=== PATIENT | female | born 1940 | race Asian ===

== ENCOUNTER 2017-01-01 12:27 | Observation (INO) ==
[2017-01-01] MEDS ORDERED: Levofloxacin 750 MG/150 ML 750 MG/150 ML BAG IVPB ONE (12:29)
--- NOTE | 2017-01-01 12:31 | Emergency Department Note ---
Disposition Clinical Impression: Bronchitis with bronchospasm, Failure of outpatient treatment Disposition: Admitted As Inpatient Condition: Fair Referrals: NO,PCP [Primary Care Provider] - Forms: ED Satisfaction Letter SOB HPI - General Chief Complaint: ED Shortness of Breath/Dyspnea Stated Complaint: khris, nausea, pain all over Time Seen by Provider: 01/01/17 12:29 Source: patient Mode of arrival: private vehicle Limitations: no limitations Nursing Notes Reviewed: Yes Vital Signs Reviewed: Yes - History of Present Illness He reports a long history of some recurrent upper wrist and dyspnea. She has been worse the last couple weeks and was seen for similar on December 26. She has also been seen subsequently by family doctor. Today she has had increased dyspnea with coughing and generalized body aches. She states her chest is sore from coughing but denies any other chest pain. She has had some nausea but no vomiting. She denies diaphoresis, abdominal pain. She denies any extremity swelling, immobilization injury or pain. She denies emphysema or COPD. Pt Subjective Complaint: shortness of breath, cough Onset (ago): day(s) Context: recent illness Severity: moderate, severe Consistency/Duration: gradually worsening Improves with: rest Worsens with: exertion, coughing Associated symptoms: Reports: cough, wheezing, sputum production, nausea/ vomiting (Nausea only). Denies: chest pain, pain with inspiration, fever, orthopnea, lower extremity pain, polyuria, polydipsia, parasthesias, palpitations, hemoptysis, diaphoresis, syncope, abdominal pain, rash Treatment prior to arrival: other (Antibiotics) Cough present: Yes Cough Description: Voluntary, Productive, Hacking Cough Frequency: Intermittent Sputum production: Yes Sputum Amount: Scant - Related Data Home Medications Medication Instructions Recorded Confirmed Fluticasone Propionate Nasal 120 spray NS BID 03/03/16 01/01/17 [Flonase] Loratadine [Claritin] 10 mg PO DAILY 03/03/16 01/01/17 Previous Rx's Medication Instructions Recorded Albuterol Sulfate [Proair Hfa] 2 puff IH QID PRN #1 inh 03/03/16 Amoxicillin/Clavulanate [Augmentin] 875 mg PO BIDWM #20 tablet 12/26/16 Allergies Allergy/AdvReac Type Severity Reaction Status Date / Time codeine AdvReac Vomiting Verified 03/03/16 15:20 naproxen [From Aleve] AdvReac Vomiting Verified 03/03/16 15:20 Sulfa (Sulfonamide AdvReac Hives Verified 03/03/16 15:20 Antibiotics) All systems ED: reviewed and negative except as stated. Past Medical History - Past Medical History Attestation: Yes The following information was validated with the patient. Source: patient, nursing notes reviewed Medical history: Reports: no medical history - Social History Smoking Status: Never smoker Smokeless Tobacco Status: No Alcohol use: Reports: none Drug use: Reports: none Physical Exam - General Limitations: no limitations General appearance: alert, anxious, in distress - Head Head exam: atraumatic, normocephalic, normal inspection - Eye Eye exam: Present: normal appearance, PERRL, EOMI. Absent: scleral icterus, conjunctival injection - ENT ENT exam: normal exam, normal oropharynx, mucous membranes moist - Neck Neck exam: Present: normal inspection, full ROM, trachea midline - Chest Chest inspection: Present: normal inspection, symmetric chest wall rise. Absent : tenderness - Respiratory Respiratory exam: Present: respiratory distress, wheezes, prolonged expiratory phase. Absent: accessory muscle use - Cardiovascular Cardiovascular exam: Present: regular rate, normal rhythm, normal heart sounds. Absent: tachycardia - Abdominal Exam Abdominal exam: Present: soft, Non-Tender, normal bowel sounds. Absent: tenderness, distention, guarding, rebound, rigidity - Extremities Exam Extremities exam: Present: normal inspection, full ROM, normal capillary refill. Absent: tenderness, pedal edema, calf tenderness - Expanded Lower Extremity Exam Neurovascular/Tendon exam: Present: normal capillary refill. Absent: motor deficit, sensory deficit, tendon deficit Gait: observed and normal - Back Exam Back exam: Present: normal inspection, full ROM. Absent: tenderness - Neurological Exam Neurological exam: Present: alert, oriented X3 - Psychiatric Psychiatric exam: Present: normal affect, anxious - Skin Skin exam: Present: warm, dry, intact, normal color. Absent: cyanosis, diaphoresis, pallor Course Course Narrative: 1330: All labs, EKG and imaging results were discussed with the patient. She is improved at this time with a heart rate of 84, oxygen 97% with supplemental oxygen, respiratory rate 26 and blood pressure 115/88. I feel she has failed to different regimens for outpatient management and would benefit from inpatient treatment. She is agreeable with this and I am awaiting a call from Dr. Godinez to help coordinate inpatient care. Vital Signs Temperature 98.6 F 01/01/17 12:32 Pulse Rate 85 01/01/17 12:32 Respiratory Rate 20 01/01/17 12:32 O2 Sat by Pulse Oximetry 98 01/01/17 12:32 Temperature 98.6 F 01/01/17 12:35 Pulse Rate 85 01/01/17 13:01 Respiratory Rate 20 01/01/17 13:01 Blood Pressure 139/60 01/01/17 13:01 O2 Sat by Pulse Oximetry 96 01/01/17 13:01 Oxygen Delivery Oxygen Delivery Nasal Cannula Shortness of Breath/Dyspnea - Differential Diagnosis Likely: acute exacerbation of chronic obstructive airways disease, congestive heart failure, pneumonia, asthma with exacerbation - Medical Records Medical records reviewed: Yes I reviewed the patient's medical records. Patient did have a negative chest x-ray, EKG and extensive lab work on December 26. She had been discharged on a steroid, Augmentin, albuterol inhaler and Mucinex. - Lab Data Lab results reviewed: Yes I reviewed the patient's lab results. Result diagrams: 01/01/17 13:00 01/01/17 13:00 Lab Results 01/01/17 01/01/17 01/01/17 Range/Units 13:00 13:00 13:00 WBC 8.8 (4.3-11.1) K/mcL RBC 4.50 (3.82-4.97) M/mcL Hgb 15.0 (11.5-15.4) g/dL Hct 44.7 (35.3-44.9) % MCV 99.3 (83.0-100.0) fL MCH 33.3 (28.0-33.3) pg MCHC 33.6 (31.6-35.5) g/dL RDW 13.1 (11.5-14.5) % Plt Count 291 (140-400) K/mcL MPV 9.0 L (9.4-12.4) fL Immature Gran % 0.2 (0-4) % Seg Neutrophils % 62.0 % Lymphocytes % 30.6 % Monocytes % 4.6 % Eosinophils % 2.4 % Basophils % 0.2 % Neutrophils # 5.4 (1.6-8.9) K/mcL Lymphocytes # 2.7 (0.6-4.6) K/mcL Monocytes # 0.4 (0.0-1.3) K/mcL Eosinophils # 0.2 (0.0-0.6) K/mcL Basophils # 0.0 (0.0-0.2) K/mcL PT (9.4-12.1) Seconds INR APTT (26.0-36.0) Seconds VBG Lactic Acid (0.5-2.2) mmol/L Sodium 140 (136-145) mEq/L Potassium 3.8 (3.5-4.5) mEq/L Chloride 105 (98-109) mEq/L Carbon Dioxide 25 (19-29) mEq/L BUN 19 (7-20) mg/dL Creatinine 0.77 (0.57-1.11) mg/dL Est GFR ( Amer) > 60 (> 60) Est GFR (Non-Af Amer) > 60 (> 60) BUN/Creatinine Ratio 25 (6-26) Glucose 152 H (70-99) mg/dL Calculated Osmolality 295 (280-300) Calcium 8.5 L (8.6-10.8) mg/dL Troponin I 0.00 (0-0.03) ng/mL B-Natriuretic Peptide (0-100) pg/mL 01/01/17 01/01/17 01/01/17 Range/Units 13:00 13:00 13:00 WBC (4.3-11.1) K/mcL RBC (3.82-4.97) M/mcL Hgb (11.5-15.4) g/dL Hct (35.3-44.9) % MCV (83.0-100.0) fL MCH (28.0-33.3) pg MCHC (31.6-35.5) g/dL RDW (11.5-14.5) % Plt Count (140-400) K/mcL MPV (9.4-12.4) fL Immature Gran % (0-4) % Seg Neutrophils % % Lymphocytes % % Monocytes % % Eosinophils % % Basophils % % Neutrophils # (1.6-8.9) K/mcL Lymphocytes # (0.6-4.6) K/mcL Monocytes # (0.0-1.3) K/mcL Eosinophils # (0.0-0.6) K/mcL Basophils # (0.0-0.2) K/mcL PT 12.0 (9.4-12.1) Seconds INR 1.1 APTT 30.8 (26.0-36.0) Seconds VBG Lactic Acid 1.4 (0.5-2.2) mmol/L Sodium (136-145) mEq/L Potassium (3.5-4.5) mEq/L Chloride (98-109) mEq/L Carbon Dioxide (19-29) mEq/L BUN (7-20) mg/dL Creatinine (0.57-1.11) mg/dL Est GFR ( Amer) (> 60) Est GFR (Non-Af Amer) (> 60) BUN/Creatinine Ratio (6-26) Glucose (70-99) mg/dL Calculated Osmolality (280-300) Calcium (8.6-10.8) mg/dL Troponin I (0-0.03) ng/mL B-Natriuretic Peptide 15 (0-100) pg/mL - Radiology Data Radiology results reviewed: Yes I reviewed the patient's radiology results. Single view chest x-ray is performed. This does not demonstrate evidence for infiltrate, effusion, pneumothorax, foreign body or heart failure. The cardiac silhouette is normal. I do not see abnormality to the osseous structures of the chest. This is on my interpretation. Impressions Chest X-Ray 01/01/17 12:29 IMPRESSION: No acute cardiopulmonary abnormality. D/ / Isak Franks MD / Isak Franks MD Interpreting Provider: Isak Franks MD - EKG Data EKG attestation: Yes I reviewed and interpreted this EKG. EKG shows normal: Reports: sinus rhythm, axis, intervals, QRS complexes, ST-T waves Rate: Reports: normal (84) Interpretation: Reports: no acute changes, normal EKG
[2017-01-01] MEDS: Ipratropium/Albuterol Neb 3 ML IH ONE ×2 (12:52→16:30)
[2017-01-01 13:07] LABS: Basophils % 0.2 %; Eosinophils # 0.2 K/mcL (0.0-0.6); Eosinophils % 2.4 %; Hematocrit 44.7 % (35.3-44.9); Immature Granulocytes % 0.2 % (0-4); Lymphocytes # 2.7 K/mcL (0.6-4.6); Lymphocytes % 30.6 %; Mean Corpuscular HGB Conc 33.6 g/dL (31.6-35.5); Mean Corpuscular Hemoglobin 33.3 pg (28.0-33.3); Mean Corpuscular Volume 99.3 fL (83.0-100.0); Monocytes # 0.4 K/mcL (0.0-1.3); Monocytes % 4.6 %; Neutrophils # 5.4 K/mcL (1.6-8.9); Platelet Count 291 K/mcL (140-400); Red Cell Distribution Width 13.1 % (11.5-14.5)
[2017-01-01 13:12] LABS: INR 1.1
[2017-01-01 13:14] LABS: Activated Partial Thrombo Time 30.8 Seconds (26.0-36.0)
[2017-01-01 13:22] LABS: BUN/Creatinine Ratio 25 (6-26); Blood Urea Nitrogen 19 mg/dL (7-20); Calcium 8.5 mg/dL (8.6-10.8); Carbon Dioxide 25 mEq/L (19-29); Chloride 105 mEq/L (98-109); Glucose 152 mg/dL (70-99); Osmolality,Calculated 295 (280-300); Potassium 3.8 mEq/L (3.5-4.5); Sodium 140 mEq/L (136-145); eGFR For African Americans > 60 (> 60); eGFR For Non-African Americans > 60 (> 60)
--- NOTE | 2017-01-01 13:39 | Electrocardiograph Report ---
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
[2017-01-01] MEDS ORDERED: Acetaminophen 325 MG TABLET PO PRN (16:03)
[2017-01-01] MEDS ORDERED: MOM Conc 10 ML UD.LIQ PO PRN (16:03)
[2017-01-01] MEDS ORDERED: Ondansetron 4 MG/2 ML VIAL IVP PRN (16:03)
[2017-01-01] MEDS ORDERED: Naloxone 0.4 MG/ML INJ IVP PRN (16:03)
[2017-01-01] MEDS ORDERED: Albuterol 2.5 MG/3 ML NEBULIZER IH PRN (16:03)
[2017-01-01] MEDS ORDERED: Ipratropium/Albuterol Neb 3 ML ONE (16:25)
[2017-01-01] MEDS: Ipratropium/Albuterol Neb 3 ML IH SCH ×2 (16:32→21:10)
[2017-01-01] MEDS: 0.9 % Sodium Chloride 1,000 ML IVC SCH (17:30)
[2017-01-02] MEDS: Ipratropium/Albuterol Neb 3 ML IH SCH ×2 (03:29→11:00)
[2017-01-02 07:37] VITALS: BP 110/63
[2017-01-02] MEDS: 0.9 % Sodium Chloride 1,000 ML IVC SCH (08:41)
[2017-01-02] MEDS ORDERED: Loratadine 10 MG TABLET PO SCH (09:00)
--- NOTE | 2017-01-02 11:11 | Internal Med History&Physical ---
Date of Encounter: 01/02/17 Time of Encounter: 10:40 Assessment and Plan (1) Acute bronchitis Current visit: Yes Status: Acute I told her she likely had acute viral bronchitis. She was started on Levaquin and Solu-Medrol through emergency room. Qualifiers: Bronchitis organism: unspecified organism Qualified Code(s): J20.9 - Acute bronchitis, unspecified Internal Medicine - H&P: HPI Chief complaint: Cough and dyspnea Admitted From: Home Plans for Post Hospital Care: Home History of present illness: Ms. Hughes is a 76 year old female who came to emergency room stating she had cough and dyspnea onset approximately 1 month ago. She came to [facility] emergency room December 26 and received prescription for Augmentin and other interventions. She did not improve significantly on this regimen. She saw her PCP Rocio Tirado CNP on December 30 and received a different antibiotic {name unknown}. She continued to have dyspnea and cough so came to emergency room and was evaluated and admitted to [facility] floor for ongoing care needs. She states she feels improved at the present time. She is a lifelong nonsmoker and has no known chronic lung disease. She denies fevers or chills. She had a single episode of vomiting this morning. She has had rhinorrhea over the past few days. She denies pharyngitis. She states her cough is productive of white phlegm without any green yellow or hemoptysis noted. Past Med Surg Social Fam HX - Past Medical History Medical history: no medical history, other Psychiatric history: no psych history - Past Surgical History Surgical History: hysterectomy - Social History Smoking Status: Never smoker Smokeless Tobacco Status: No Alcohol use: none Drug use: none Internal Medicine - H&P: Meds Albuterol Sulfate [Proair Hfa] 2 puff IH QID PRN #1 inh 03/03/16 [Rx] Fluticasone Propionate Nasal [Flonase] 120 spray NS BID 03/03/16 [History] Loratadine [Claritin] 10 mg PO DAILY 03/03/16 [History] Amoxicillin/Clavulanate [Augmentin] 875 mg PO BIDWM #20 tablet 12/26/16 [Rx] Allergies codeine Adverse Reaction (Verified 03/03/16 15:20) Vomiting naproxen [From Aleve] Adverse Reaction (Verified 03/03/16 15:20) Vomiting Sulfa (Sulfonamide Antibiotics) Adverse Reaction (Verified 03/03/16 15:20) Hives All Systems PM: A 10-system review of systems was performed and is negative for pertinent findings except as documented above in the HPI. Review of systems: Gen.: She states her weight is increased by 10 pounds in the past year Cardiovascular: She denies hypertension [place] heart failure angina DVT or pulmonary embolus Respiratory: As per history of present illness GI: She denies disorders of her liver gallbladder or exocrine pancreas : She has had hysterectomy. 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 - Constitutional Vitals: Temp Pulse Resp BP Pulse Ox 98.2 F 89 18 110/63 95 01/02/17 07:00 01/02/17 07:00 01/02/17 10:52 01/02/17 07:00 01/02/17 10:52 Exam: Gen.: She is a well-developed well-nourished female who appears in no acute distress at present time. HEENT: Head is atraumatic and normocephalic. Eyes: EOMI. There is no scleral icterus. Mouth: Mucosa is moist. Neck: Supple and nontender. There is no thyromegaly or adenopathy noted. Heart: Regular without murmurs gallops or ectopics Lungs: No wheezes crackles or egophony are heard Abdomen: Soft and nontender. No masses or guarding are noted. Extremities: There is no cyanosis edema or clubbing noted. Dorsalis pedis and posttibial pulses are 1-2 over 2 bilaterally. She has DJD changes of her hands and feet Neurologic: Mental status: She is talkative and a good historian. Cranial nerves: Smile is symmetric. Forehead wrinkles bilaterally. Tongue protrudes midline. EOMI. Motor: There is no pronator drift. Cerebellar: Finger to nose is intact bilaterally. Skin: Warm and dry Internal Med - H&P Results - Labs CBC & Chem 7: 01/01/17 13:00 01/01/17 13:00 - Impressions ITS Impressions Chest CT 01/01/17 20:44 IMPRESSION: Mild focal scarring or atelectasis in both lower lobes. Motion artifact limited exam without additional evidence of acute pulmonary disease. Indeterminate small nodules in both upper lobes measuring less than 6 mm. Marked circumferential wall thickening of the distal esophagus with possible mass at the gastroesophageal junction. Further evaluation with endoscopy is recommended. D/ / Jonathon Salvador MD / Jonathon Salvador MD Interpreting Provider: Jonathon Salvadro MD
--- NOTE | 2017-01-02 11:22 | Discharge Summary ---
Date of Encounter: 01/02/17 Time of Encounter: 10:40 - Discharge Diagnosis (1) Acute bronchitis Priority: Primary Status: Acute Qualifiers: Bronchitis organism: unspecified organism Qualified Code(s): J20.9 - Acute bronchitis, unspecified - Discharge Medications Prescriptions: Budesonide/Formoterol 160/4.5 [Symbicort 160/4.5] 2 puff IH BIDR #1 hfa.aer.ad Home Medications: Albuterol Sulfate [Proair Hfa] 2 puff IH QID PRN #1 inh 03/03/16 [Rx] Fluticasone Propionate Nasal [Flonase] 120 spray NS BID 03/03/16 [History] Budesonide/Formoterol 160/4.5 [Symbicort 160/4.5] 2 puff IH BIDR #1 hfa.aer.ad 01/02/17 [Rx] Loratadine [Claritin] 10 mg PO DAILY PRN #0 01/02/17 [Rx] Allergies/Adverse Reactions: Allergies codeine Adverse Reaction (Verified 03/03/16 15:20) Vomiting naproxen [From Aleve] Adverse Reaction (Verified 03/03/16 15:20) Vomiting Sulfa (Sulfonamide Antibiotics) Adverse Reaction (Verified 03/03/16 15:20) Hives Procedures/tests Complete & Pending: Procedures Performed prior 72 hours Category Date Time Status CT chest w/o contrast [CT chest wo con] [CT] Routine Cat Scan 01/01/17 20:44 Completed Date of admission: 01/01/17 14:00 Primary care physician: Rocio Tirado CNP - Patient Status Disposition: Home, Self-Care Condition: Fair Overall status at discharge: patient is progressing back to baseline - Discharge Instructions Follow Up With: Rocio Tirado CNP [Advanced Practice Nurse] - 1 week - Diet and Activity Activity: resume usual activities as tolerated Diet: advance to your usual diet Hospital course: Ms. Hughes is a 76 year old female who came to emergency room stating she had cough and dyspnea onset approximately 1 month ago. She came to [facility] emergency room December 26 and received prescription for Augmentin and other interventions. She did not improve significantly on this regimen. She saw her PCP Rocio Tirado CNP on December 30 and received a different antibiotic {name unknown}. She continued to have dyspnea and cough so came to emergency room and was evaluated and admitted to [facility] for ongoing care needs. Initial orders were written by the emergency room physician. I saw her on January 02 and performed a history physical and discharge. When I saw her she stated she felt significantly improved. She still had some cough and mild dyspnea. There was no wheezing on physical exam. I told her she likely had viral bronchitis and did not need additional antibiotics. I prescribed Symbicort inhaler for 5 days to lessen bronchospasm and cough. She will be discharged home and follow with her PCP Rocio Tirado CNP within 1 week. - Time Spent with Patient Total time spent providing and/or coordinating discharge services: - Constitutional Vitals: Temp Pulse Resp BP Pulse Ox 98.2 F 89 18 110/63 95 01/02/17 07:00 01/02/17 07:00 01/02/17 10:52 01/02/17 07:00 01/02/17 10:52
[2017-01-03] MEDS ORDERED: Levofloxacin 750 MG/150 ML 750 MG/150 ML BAG IVPB SCH (09:00)
== END 2017-01-02 14:25 | disposition home or self-care (01) ==
LOC: EMEROOPIK 12:27 → INPPIK 12:27
PROVIDERS: ADMIT Internal Medicine; ATTEND Internal Medicine

== ENCOUNTER 2017-06-26 12:19 | Observation (INO) ==
[~2017-06-26 12:19] MED LIST: Ipratropium/Albuterol Neb 3 ML IH ONE; methylPREDNISolone 125 MG/2 ML VIAL IVP ONE
--- NOTE | 2017-06-26 12:23 | Emergency Department Note ---
Disposition Clinical Impression: Acute exacerbation of chronic obstructive airways disease Disposition: Admitted As Inpatient Condition: Fair Forms: ED Satisfaction Letter Time of Disposition: 13:59 ([facility]) SOB HPI - General Chief Complaint: ED Shortness of Breath/Dyspnea Stated Complaint: difficulty in breathing Time Seen by Provider: 06/26/17 12:19 Source: patient, EMS Mode of arrival: EMS Limitations: no limitations Nursing Notes Reviewed: Yes Vital Signs Reviewed: Yes - History of Present Illness Pt Subjective Complaint: shortness of breath, anxiety Onset (ago): Just [employer]ORY WORK[employer] Context: other (some signifigant stressors) Severity: severe Consistency/Duration: gradually worsening Improves with: bronchodilators Worsens with: exertion, movement Known history of: COPD Associated symptoms: Reports: cough, wheezing, sputum production, palpitations, diaphoresis. Denies: chest pain, pain with inspiration, fever, orthopnea, lower extremity pain, polyuria, polydipsia, parasthesias, hemoptysis, nausea/ vomiting, syncope, abdominal pain, rash, sense of impending doom Treatment prior to arrival: oxygen, bronchodilator Cough present: Yes Cough Description: Non-Productive, Weak, Wheezy Cough Frequency: Intermittent Sputum production: No - Related Data Home Medications Medication Instructions Recorded Confirmed Fluticasone Propionate Nasal 120 spray NS BID 03/03/16 01/01/17 [Flonase] Ginkgo Biloba 60 mg PO DAILY 06/26/17 06/26/17 Oxygen 1 each .ROUTE AD 06/26/17 06/26/17 Pyridoxine HCl [Vitamin B-6] 100 mg PO DAILY 06/26/17 06/26/17 Previous Rx's Medication Instructions Recorded Albuterol Sulfate [Proair Hfa] 2 puff IH QID PRN #1 inh 03/03/16 Budesonide/Formoterol 160/4.5 2 puff IH BIDR #1 hfa.aer.ad 01/02/17 [Symbicort 160/4.5] Loratadine [Claritin] 10 mg PO DAILY PRN #0 01/02/17 Allergies Allergy/AdvReac Type Severity Reaction Status Date / Time acetaminophen [From Tylenol] AdvReac Vomiting Verified 06/26/17 12:20 codeine AdvReac Vomiting Verified 06/26/17 12:20 naproxen [From Aleve] AdvReac Vomiting Verified 06/26/17 12:20 Sulfa (Sulfonamide AdvReac Hives Verified 06/26/17 12:20 Antibiotics) All systems ED: reviewed and negative except as stated. Review of Systems: As Per HPI Constitutional: Denies: fever, chills, weakness Eyes: Denies: eye pain, eye discharge ENT ED: Denies: ear pain, throat pain Cardiovascular: Reports: palpitations. Denies: chest pain, dyspnea on exertion Respiratory: Reports: cough, dyspnea, wheezes. Denies: sputum production Gastrointestinal: Denies: abdominal pain, nausea, vomiting Genitourinary: Denies: urgency, dysuria Musculoskeletal: Denies: back pain, neck pain Integumentary: Denies: rash, abrasion, lesions Neurological: Denies: headache, weakness Psychiatric: Reports: anxiety Endocrine: Denies: fatigue, heat or cold intolerance Hematological/Lymphatic: Denies: easy bleeding, easy bruising Allergic/Immunologic: Denies: facial swelling Past Medical History - Past Medical History Attestation: Yes The following information was validated with the patient. Source: patient, old records reviewed, nursing notes reviewed Medical history: Reports: COPD, GERD, other Surgical history: Reports: hysterectomy Psychiatric history: Reports: no psych history - Social History Smoking Status: Never smoker Smokeless Tobacco Status: No Alcohol use: Reports: none Drug use: Reports: none Physical Exam - General Limitations: no limitations General appearance: alert, anxious, in distress - Head Head exam: atraumatic, normocephalic - Eye Eye exam: Present: normal appearance, PERRL, EOMI - ENT ENT exam: normal exam, normal oropharynx, mucous membranes moist, TM's normal bilaterally, normal external ear exam - Neck Neck exam: Present: normal inspection, full ROM, trachea midline - Chest Chest inspection: Present: normal inspection, symmetric chest wall rise - Respiratory Respiratory exam: Present: wheezes, accessory muscle use, prolonged expiratory phase - Cardiovascular Cardiovascular exam: Present: tachycardia, normal heart sounds - Abdominal Exam Abdominal exam: Present: soft, Non-Tender, normal bowel sounds. Absent: mass, pulsatile mass - Extremities Exam Extremities exam: Present: normal inspection, full ROM, normal capillary refill. Absent: tenderness, pedal edema, joint swelling, calf tenderness - Expanded Lower Extremity Exam Neurovascular/Tendon exam: Present: normal capillary refill, normal fine/light touch Gait: observed and normal - Back Exam Back exam: Present: normal inspection, full ROM. Absent: muscle spasm - Neurological Exam Neurological exam: Present: alert, oriented X3, CN II-XII intact, normal gait - Psychiatric Psychiatric exam: Present: normal affect, normal mood, anxious, other ( emotional due to daughters chemo failing) - Skin Skin exam: Present: warm, dry, intact, normal color Course Course Narrative: She was immediately seen and examined given a DuoNeb 2 was taken from 100% nonrebreather turned down to a Ventimask to help provide her some supplemental oxygen after completing a breathing treatment patient still continues to be tachypnea but is breathing much easier still very tight and wheezy spoke with the patient she is agreed for admission transferred to [facility] stable Vital Signs Temperature 97.4 F L 06/26/17 12:21 Pulse Rate 99 06/26/17 12:21 Respiratory Rate 28 06/26/17 12:21 Blood Pressure 142/100 06/26/17 12:21 O2 Sat by Pulse Oximetry 97 06/26/17 12:21 Temperature 97.4 F L 06/26/17 12:21 Pulse Rate 104 06/26/17 13:36 Respiratory Rate 27 06/26/17 13:36 Blood Pressure 109/69 06/26/17 13:36 O2 Sat by Pulse Oximetry 95 06/26/17 13:36 Oxygen Delivery Oxygen Delivery Nasal Cannula Shortness of Breath/Dyspnea - Differential Diagnosis Likely: acute exacerbation of chronic obstructive airways disease - Medical Records Medical records reviewed: Yes I reviewed the patient's medical records. - Lab Data Lab results reviewed: Yes I reviewed the patient's lab results. Result diagrams: 06/26/17 13:05 06/26/17 13:05 Lab Results 06/26/17 06/26/17 06/26/17 Range/Units 12:35 13:05 13:05 WBC 14.2 H (4.3-11.1) K/mcL RBC 4.11 (3.82-4.97) M/mcL Hgb 13.7 (11.5-15.4) g/dL Hct 41.6 (35.3-44.9) % MCV 101.2 H (83.0-100.0) fL MCH 33.3 (28.0-33.3) pg MCHC 32.9 (31.6-35.5) g/dL RDW 12.9 (11.5-14.5) % Plt Count 260 (140-400) K/mcL MPV 9.1 L (9.4-12.4) fL Immature Gran % 0.6 (0-4) % Seg Neutrophils % 83.7 % Lymphocytes % 12.9 % Monocytes % 2.6 % Eosinophils % 0.1 % Basophils % 0.1 % Neutrophils # 11.9 H (1.6-8.9) K/mcL Lymphocytes # 1.8 (0.6-4.6) K/mcL Monocytes # 0.4 (0.0-1.3) K/mcL Eosinophils # 0.0 (0.0-0.6) K/mcL Basophils # 0.0 (0.0-0.2) K/mcL PT 10.9 (9.4-12.1) Seconds INR 1.0 APTT 26.8 (26.0-36.0) Seconds ABG pH 7.31 L (7.32-7.45) pH Units ABG pCO2 44 (35-45) mmHg ABG pO2 79 L (85-104) mmHg ABG HCO3 22 (21-27) mEq/L ABG Total CO2 24 (20-26) mEq/L ABG O2 Saturation 94 L (95-98) % ABG Base Excess -4.0 L (-2.0 to 3.0) mEq/L Liter Flow 3 L/MIN Blood Gas Modality oxymask Sodium (136-145) mEq/L Potassium (3.5-4.5) mEq/L Chloride (98-109) mEq/L Carbon Dioxide (19-29) mEq/L BUN (7-20) mg/dL Creatinine (0.57-1.11) mg/dL Est GFR ( Amer) (> 60) Est GFR (Non-Af Amer) (> 60) BUN/Creatinine Ratio (6-26) Glucose (70-99) mg/dL Calculated Osmolality (280-300) Calcium (8.6-10.8) mg/dL 06/26/17 Range/Units 13:05 WBC (4.3-11.1) K/mcL RBC (3.82-4.97) M/mcL Hgb (11.5-15.4) g/dL Hct (35.3-44.9) % MCV (83.0-100.0) fL MCH (28.0-33.3) pg MCHC (31.6-35.5) g/dL RDW (11.5-14.5) % Plt Count (140-400) K/mcL MPV (9.4-12.4) fL Immature Gran % (0-4) % Seg Neutrophils % % Lymphocytes % % Monocytes % % Eosinophils % % Basophils % % Neutrophils # (1.6-8.9) K/mcL Lymphocytes # (0.6-4.6) K/mcL Monocytes # (0.0-1.3) K/mcL Eosinophils # (0.0-0.6) K/mcL Basophils # (0.0-0.2) K/mcL PT (9.4-12.1) Seconds INR APTT (26.0-36.0) Seconds ABG pH (7.32-7.45) pH Units ABG pCO2 (35-45) mmHg ABG pO2 (85-104) mmHg ABG HCO3 (21-27) mEq/L ABG Total CO2 (20-26) mEq/L ABG O2 Saturation (95-98) % ABG Base Excess (-2.0 to 3.0) mEq/L Liter Flow L/MIN Blood Gas Modality Sodium 140 (136-145) mEq/L Potassium 4.2 (3.5-4.5) mEq/L Chloride 107 (98-109) mEq/L Carbon Dioxide 21 (19-29) mEq/L BUN 16 (7-20) mg/dL Creatinine 0.77 (0.57-1.11) mg/dL Est GFR ( Amer) > 60 (> 60) Est GFR (Non-Af Amer) > 60 (> 60) BUN/Creatinine Ratio 21 (6-26) Glucose 180 H (70-99) mg/dL Calculated Osmolality 296 (280-300) Calcium 9.0 (8.6-10.8) mg/dL - Radiology Data Radiology results reviewed: Yes I reviewed the patient's radiology results. ITS Impressions Chest X-Ray 06/26/17 12:20 IMPRESSION: 1. Motion partially limits evaluation. 2. No convincing acute cardiopulmonary abnormality. D/ / Isak Franks MD / Isak Franks MD Interpreting Provider: Isak Franks MD Critical Care Time Critical Care Time: No
[2017-06-26 12:41] LABS: ABG PCO2 44 mmHg (35-45); ABG PH 7.31 pH Units (7.32-7.45)
[2017-06-26 12:42] LABS: ABG HCO3 22 mEq/L (21-27); ABG Oxygen Saturation 94 % (95-98); ABG PO2 79 mmHg (85-104); ABG TCO2 24 mEq/L (20-26); Blood Gas Liter Flow 3 L/MIN; Blood Gas Modality oxymask
[2017-06-26 13:20] LABS: Basophils % 0.1 %; Eosinophils % 0.1 %; Hematocrit 41.6 % (35.3-44.9); Hemoglobin 13.7 g/dL (11.5-15.4); Immature Granulocytes % 0.6 % (0-4); Lymphocytes # 1.8 K/mcL (0.6-4.6); Lymphocytes % 12.9 %; Mean Corpuscular HGB Conc 32.9 g/dL (31.6-35.5); Mean Corpuscular Hemoglobin 33.3 pg (28.0-33.3); Mean Corpuscular Volume 101.2 fL (83.0-100.0); Mean Platelet Volume 9.1 fL (9.4-12.4); Monocytes # 0.4 K/mcL (0.0-1.3); Monocytes % 2.6 %; Neutrophils # 11.9 K/mcL (1.6-8.9); Platelet Count 260 K/mcL (140-400); Red Blood Count 4.11 M/mcL (3.82-4.97); Red Cell Distribution Width 12.9 % (11.5-14.5); Segmented Neutrophils % 83.7 %
[2017-06-26 13:25] LABS: Prothrombin Time 10.9 Seconds (9.4-12.1)
[2017-06-26 13:28] LABS: Activated Partial Thrombo Time 26.8 Seconds (26.0-36.0)
[2017-06-26 13:35] LABS: BUN/Creatinine Ratio 21 (6-26); Blood Urea Nitrogen 16 mg/dL (7-20); Carbon Dioxide 21 mEq/L (19-29); Chloride 107 mEq/L (98-109); Glucose 180 mg/dL (70-99); Osmolality,Calculated 296 (280-300); Potassium 4.2 mEq/L (3.5-4.5); Sodium 140 mEq/L (136-145); eGFR For African Americans > 60 (> 60); eGFR For Non-African Americans > 60 (> 60)
[2017-06-26] MEDS ORDERED: 0.9 % Sodium Chloride 1,000 ML IVC SCH ×2 (14:17→16:30)
[2017-06-26] MEDS ORDERED: Ondansetron ODT 4 MG TAB.RAPDIS SL PRN (14:17)
[2017-06-26] MEDS ORDERED: Naloxone 0.4 MG/ML INJ IVP PRN (14:17)
[2017-06-26] MEDS ORDERED: Loratadine 10 MG TABLET PO PRN (14:17)
[2017-06-26] MEDS ORDERED: Ipratropium Neb 0.5 MG NEBULIZER IH SCH (16:00)
--- NOTE | 2017-06-26 16:32 | Internal Med History&Physical ---
Date of Encounter: 06/26/17 Time of Encounter: 15:50 Assessment and Plan (1) Acute exacerbation of chronic obstructive airways disease Current visit: Yes Status: Acute She has been started on IV antibiotics. Solu-Medrol has also been started. Chest CT will be done to further evaluate. Further workup will be done as needed. Internal Medicine - H&P: HPI Chief complaint: Hypoxemia Admitted From: Home Plans for Post Hospital Care: Home History of present illness: Ms. Hughes is a 76 year old female who came to the emergency room stating she had dyspnea with oxygen saturation 73% while at work today. She became anxious and came to emergency room. She was evaluated in emergency room and felt to have exacerbation of COPD. She was admitted to [facility] floor for ongoing care needs. She states she follows with a top lift scourer at [facility] and was told she had COPD during hospitalization there January 2017. She saw the top lift scourer yesterday. She wears oxygen at bedtime and as been on steroids for several weeks. She states she is a lifelong nonsmoker. Past Med Surg Social Fam HX - Past Medical History Medical history: COPD, GERD, other Psychiatric history: no psych history - Past Surgical History Surgical History: hysterectomy - Social History Smoking Status: Never smoker Smokeless Tobacco Status: No Alcohol use: none Drug use: none Internal Medicine - H&P: Meds Albuterol Sulfate [Proair Hfa] 2 puff IH QID PRN #1 inh 03/03/16 [Rx] Fluticasone Propionate Nasal [Flonase] 120 spray NS BID 03/03/16 [History] Budesonide/Formoterol 160/4.5 [Symbicort 160/4.5] 2 puff IH BIDR #1 hfa.aer.ad 01/02/17 [Rx] Loratadine [Claritin] 10 mg PO DAILY PRN #0 01/02/17 [Rx] Ginkgo Biloba 60 mg PO DAILY 06/26/17 [History] Oxygen 1 each .ROUTE AD 06/26/17 [History] Pyridoxine HCl [Vitamin B-6] 100 mg PO DAILY 06/26/17 [History] 3 Allergy/AdvReac Type Severity Reaction Status Date / Time acetaminophen [From Tylenol] AdvReac Vomiting Verified 06/26/17 12:20 codeine AdvReac Vomiting Verified 06/26/17 12:20 naproxen [From Aleve] AdvReac Vomiting Verified 06/26/17 12:20 Sulfa (Sulfonamide AdvReac Hives Verified 06/26/17 12:20 Antibiotics) All Systems PM: A 10-system review of systems was performed and is negative for pertinent findings except as documented above in the HPI. Review of systems: Gen.: Her weight has increased from 54.431 kg at the December 2016 [facility] hospitalization a 61.235 kg remission now. Cardiovascular: She denies hypertension MS heart failure angina DVT or pulmonary embolus Respiratory: As per history of present illness GI: She denies disorders of her liver gallbladder or exocrine pancreas. She states she has GERD. She denies dysphagia. : She has had hysterectomy. 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 - Constitutional Vitals: Temp Pulse Resp BP Pulse Ox 97.4 F L 98 24 107/59 98 06/26/17 12:21 06/26/17 14:12 06/26/17 14:20 06/26/17 14:20 06/26/17 14:12 Exam: Gen.: She is a well-developed well-nourished female who appears slightly dyspneic and is wearing oxygen. HEENT: Head is atraumatic and normocephalic. Eyes: EOMI. There is no scleral icterus. Mouth: Mucosa is moist. Neck: Supple and nontender. There is no thyromegaly or adenopathy noted. Heart: Regular without murmurs gallops or ectopics Lungs: She has no expiratory wheezing or inspiratory crackles heard. Breath sounds are symmetric. Abdomen: Soft and nontender. No masses or guarding are noted. Extremities: There is no cyanosis edema or clubbing noted. Dorsalis pedis and posterior tibial pulses are trace to 1+ palpable bilaterally. Feet are warm to touch. Neurologic: Mental status: She is talkative and a good historian. Cranial nerves: Smile is symmetric. Forehead wrinkles bilaterally. Tongue protrudes midline. EOMI. Motor: There is no pronator drift. Cerebellar: Finger to nose intact bilaterally. Skin: Warm and dry Internal Med - H&P Results - Labs CBC & Chem 7: 06/26/17 13:05 06/26/17 13:05
[2017-06-26] MEDS: Albuterol 2.5 MG/3 ML NEBULIZER IH PRN ×2 (16:48→21:52)
[2017-06-26] MEDS ORDERED: Ipratropium/Albuterol Neb 3 ML IH SCH (17:00)
[2017-06-26] MEDS: Azithromycin 500 MG in D5% in Water 250 ML IVPB SCH (17:50)
[2017-06-26] MEDS: methylPREDNISolone 125 MG/2 ML VIAL IVP SCH ×2 (17:50→23:42)
[2017-06-26] MEDS: Fluticasone Propionate Nasal 50 MCG/SPRAY BOTTLE NS SCH (20:17)
[2017-06-26] MEDS: Budesonide/Formoterol 160/4.5 MDI IH SCH (21:52)
[2017-06-27] MEDS: Albuterol 2.5 MG/3 ML NEBULIZER IH PRN ×5 (01:24→21:30)
[2017-06-27] MEDS: methylPREDNISolone 125 MG/2 ML VIAL IVP SCH (05:35)
[2017-06-27 05:51] LABS: Basophils % 0.1 %; Hematocrit 37.8 % (35.3-44.9); Hemoglobin 12.5 g/dL (11.5-15.4); Immature Granulocytes % 0.6 % (0-4); Lymphocytes % 6.8 %; Mean Corpuscular HGB Conc 33.1 g/dL (31.6-35.5); Mean Corpuscular Hemoglobin 33.2 pg (28.0-33.3); Mean Corpuscular Volume 100.5 fL (83.0-100.0); Mean Platelet Volume 9.6 fL (9.4-12.4); Monocytes # 0.1 K/mcL (0.0-1.3); Monocytes % 0.7 %; Neutrophils # 13.9 K/mcL (1.6-8.9); Platelet Count 253 K/mcL (140-400); Red Blood Count 3.76 M/mcL (3.82-4.97); Red Cell Distribution Width 12.7 % (11.5-14.5); Segmented Neutrophils % 91.8 %
[2017-06-27 06:04] LABS: BUN/Creatinine Ratio 25 (6-26); Blood Urea Nitrogen 18 mg/dL (7-20); Calcium 8.6 mg/dL (8.6-10.8); Carbon Dioxide 20 mEq/L (19-29); Chloride 110 mEq/L (98-109); Glucose 175 mg/dL (70-99); Osmolality,Calculated 300 (280-300); Potassium 4.2 mEq/L (3.5-4.5); Sodium 142 mEq/L (136-145); eGFR For African Americans > 60 (> 60); eGFR For Non-African Americans > 60 (> 60)
[2017-06-27] MEDS: Pyridoxine (B-6) 50 MG TABLET PO SCH (08:59)
--- NOTE | 2017-06-27 09:03 | Internal Med Progress Note ---
Date of Encounter: 06/27/17 Time of Encounter: 08:45 - Assessment and plan (1) Acute exacerbation of chronic obstructive airways disease Current Visit: Yes Status: Acute Assessment and plan: June 27. She reports she also having possible paradoxical worsening from administration of steroids or dyspnea. I will discontinue Solu-Medrol and IV fluids. Continue Rocephin and Zithromax. Recheck labs in a.m. (2) Esophagitis Current Visit: Yes Status: Acute Assessment and plan: June 27. Chest CT again demonstrated thickening of distal esophagus as per December 2016 study. She had an EGD January 2017 without biopsies done. She was given treatment but states she did not follow-up with the GI specialist as directed because she had respiratory worsening and did not feel able to go to the appointment. She wishes her PCP to refer her to [facility] for reevaluation after discharge. (3) Elevated brain natriuretic peptide (BNP) level Current Visit: Yes Status: Acute Assessment and plan: June 27. Will stop IV fluids and give Bumex. Recheck labs in a.m. - Subjective Interval history: June 27. She has no new complaints. She states her dyspnea has lessened but she is not back to her baseline yet. - Constitutional Vitals: Temp Pulse Resp BP Pulse Ox 97.9 F 75 12 123/65 97 06/27/17 06:33 06/27/17 06:33 06/27/17 06:33 06/27/17 06:33 06/27/17 06:33 Exam: She is resting in bed. She appears slightly dyspneic. Her lungs show no expiratory wheezing. Reviewed her medications, labs, and chest CT report. Internal Medicine: Result - Labs CBC & Chem 7: 06/27/17 04:37 06/27/17 04:37 Labs: Short CBC 06/27/17 Range/Units 04:37 WBC 15.1 H (4.3-11.1) K/mcL Hgb 12.5 (11.5-15.4) g/dL Hct 37.8 (35.3-44.9) % Plt Count 253 (140-400) K/mcL Neutrophils # 13.9 H (1.6-8.9) K/mcL BMP 06/27/17 04:37 Sodium 142 Potassium 4.2 Chloride 110 H Carbon Dioxide 20 BUN 18 Creatinine 0.73 Glucose 175 H Calcium 8.6 - ABG Interpretation ABG results: ABG ABG pH 7.31 pH Units (7.32-7.45) L 06/26/17 12:35 ABG pCO2 44 mmHg (35-45) 06/26/17 12:35 ABG pO2 79 mmHg (85-104) L 06/26/17 12:35 ABG O2 Saturation 94 % (95-98) L 06/26/17 12:35 PT/INR, D-dimer PT 10.9 Seconds (9.4-12.1) 06/26/17 13:05 - Impressions Impressions Chest CT 06/26/17 16:25 IMPRESSION: Mural thickening is again demonstrated of the distal esophagus for which esophagitis or esophageal neoplasm should be considered. Endoscopy is suggested for further evaluation. Mural thickening is seen of airways, suggestive of bronchitis. No jennifer airspace disease. Small noncalcified pulmonary nodules are similar in distribution to prior. D/ / Michel Kendall MD / Michel Kendall MD Interpreting Provider: Michel Kendall MD Consult Discharge Plan - Plan Referrals: Rocio Tirado, [employer]SULT[employer] SERVICES PROJECT MANAGER [Primary Care Provider] - 1 week
[2017-06-27] MEDS ORDERED: Bumetanide 1 MG TABLET PO ONE (09:06)
[2017-06-27] MEDS: Budesonide/Formoterol 160/4.5 MDI IH SCH ×2 (10:07→21:33)
[2017-06-27] MEDS: Tiotropium 18 MCG inhalation IH SCH (10:09)
[2017-06-27] MEDS: Fluticasone Propionate Nasal 50 MCG/SPRAY BOTTLE NS SCH ×2 (10:27→19:56)
[2017-06-27] MEDS: Azithromycin 500 MG in D5% in Water 250 ML IVPB SCH (18:29)
[2017-06-28] MEDS: Albuterol 2.5 MG/3 ML NEBULIZER IH PRN ×2 (04:51→10:52)
[2017-06-28 05:23] LABS: Basophils % 0.1 %; Hematocrit 38.4 % (35.3-44.9); Hemoglobin 12.6 g/dL (11.5-15.4); Immature Granulocytes % 0.6 % (0-4); Lymphocytes # 2.1 K/mcL (0.6-4.6); Mean Corpuscular HGB Conc 32.8 g/dL (31.6-35.5); Mean Corpuscular Hemoglobin 32.8 pg (28.0-33.3); Mean Platelet Volume 9.8 fL (9.4-12.4); Monocytes # 0.9 K/mcL (0.0-1.3); Monocytes % 4.2 %; Neutrophils # 17.8 K/mcL (1.6-8.9); Platelet Count 254 K/mcL (140-400); Red Blood Count 3.84 M/mcL (3.82-4.97); Segmented Neutrophils % 85.1 %
[2017-06-28 05:45] LABS: Alanine Aminotransferase 41 Units/L (0-55); Albumin 3.2 g/dL (3.5-5.0); Albumin/Globulin Ratio 1.1 (1.1-2.2); Alkaline Phosphatase 68 Units/L (38-126); Aspartate Amino Transferase 23 Units/L (5-34); BUN/Creatinine Ratio 41 (6-26); Bilirubin,Total 0.4 mg/dL (0.2-1.2); Blood Urea Nitrogen 28 mg/dL (7-20); Calcium 8.5 mg/dL (8.6-10.8); Carbon Dioxide 25 mEq/L (19-29); Chloride 109 mEq/L (98-109); Glucose 124 mg/dL (70-99); Magnesium 2.1 mg/dL (1.6-2.6); Osmolality,Calculated 303 (280-300); Sodium 143 mEq/L (136-145); Total Protein 6.2 g/dL (6.0-8.3); eGFR For African Americans > 60 (> 60); eGFR For Non-African Americans > 60 (> 60)
[2017-06-28 06:41] VITALS: BP 120/59
[2017-06-28] MEDS: Pyridoxine (B-6) 50 MG TABLET PO SCH (08:19)
[2017-06-28] MEDS: Fluticasone Propionate Nasal 50 MCG/SPRAY BOTTLE NS SCH (08:19)
--- NOTE | 2017-06-28 09:28 | Discharge Summary ---
Date of Encounter: 06/28/17 Time of Encounter: 09:10 - Discharge Diagnosis (1) Acute exacerbation of chronic obstructive airways disease Priority: Primary Status: Acute (2) Esophagitis Priority: Secondary Status: Acute (3) Elevated brain natriuretic peptide (BNP) level Priority: Secondary Status: Acute - Discharge Medications Prescriptions: Bumetanide 0.5 mg PO DAILY #5 tablet Tiotropium [Spiriva] 18 mcg IH DAILYR #30 inh Home Medications: Albuterol Sulfate [Proair Hfa] 2 puff IH QID PRN #1 inh 03/03/16 [Rx] Fluticasone Propionate Nasal [Flonase] 120 spray NS BID 03/03/16 [History] Budesonide/Formoterol 160/4.5 [Symbicort 160/4.5] 2 puff IH BIDR #1 hfa.aer.ad 01/02/17 [Rx] Loratadine [Claritin] 10 mg PO DAILY PRN #0 01/02/17 [Rx] Ginkgo Biloba 60 mg PO DAILY 06/26/17 [History] Oxygen 1 each .ROUTE AD 06/26/17 [History] Pyridoxine HCl [Vitamin B-6] 100 mg PO DAILY 06/26/17 [History] Bumetanide 0.5 mg PO DAILY #5 tablet 06/28/17 [Rx] Tiotropium [Spiriva] 18 mcg IH DAILYR #30 inh 06/28/17 [Rx] Allergies/Adverse Reactions: 3 Allergy/AdvReac Type Severity Reaction Status Date / Time acetaminophen [From Tylenol] AdvReac Vomiting Verified 06/26/17 12:20 codeine AdvReac Vomiting Verified 06/26/17 12:20 naproxen [From Aleve] AdvReac Vomiting Verified 06/26/17 12:20 Sulfa (Sulfonamide AdvReac Hives Verified 06/26/17 12:20 Antibiotics) Procedures/tests Complete & Pending: Procedures Performed prior 72 hours Category Date Time Status CT chest wo con [CT] Routine Cat Scan 06/26/17 16:25 Completed Date of admission: 06/26/17 14:10 Primary care physician: Rocio Tirado CNP - Patient Status Disposition: Home, Self-Care Condition: Fair Functional capacity at discharge: independent ambulation Overall status at discharge: patient is progressing back to baseline - Discharge Instructions Follow Up With: Rocio Tirado, BENCH JEWELER [Primary Care Provider] - 1 week - Diet and Activity Activity: resume usual activities as tolerated, wear oxygen at night Diet: advance to your usual diet Hospital course: Ms. Hughes is a 76 year old female who came to the emergency room stating she had dyspnea with oxygen saturation 73% while at work today. She became anxious and came to emergency room. She was evaluated in emergency room and felt to have exacerbation of COPD. She was admitted to [facility] floor for ongoing care needs. Initial orders were written by the emergency room physician. I saw her on June 26 and performed a history and physical. She was started on IV Rocephin and Zithromax with Solu-Medrol. Chest CT was done to further evaluate. There was no obvious airspace disease seen. Small noncalcified pulmonary nodules were similar to the December 2016 study. There was again seen distal esophageal mural thickening for which esophagitis or esophageal neoplasm should be considered. She will talk to her PCP about being referred again to Dr. Valle at [facility] for repeat endoscopy and likely biopsy to further evaluate the esophageal abnormality. I told her she possibly had viral bronchitis and that antibiotics would not be of value. WBC increased to 20.9 on June 28 with 85.1% segs. She had elevation in BN peptide to 721 on June 27. IV fluids were discontinued and she was given Bumex and BN peptide had improved to 228 by June 28. Her dyspnea had also improved. On June 28 she felt stable for discharge home which I felt was reasonable. She will not receive further antibiotics since I feel she likely has a viral infection. Oral steroids will not be given. She will continue low-dose Bumex for 5 additional days. Her PCP can determine if ongoing diuretics are needed. I added Spiriva. She has supplemental oxygen at home already. She will follow with her PCP within one week. She will follow with her biometrics head as scheduled. Her PCP can refer her back to Dr. Valle for endoscopy and possible esophageal biopsy. - Time Spent with Patient Total time spent providing and/or coordinating discharge services: - Constitutional Vitals: Temp Pulse Resp BP Pulse Ox 97.8 F 68 12 120/59 96 06/28/17 06:41 06/28/17 06:41 06/28/17 06:41 06/28/17 06:41 06/28/17 08:55
[2017-06-28] MEDS: Tiotropium 18 MCG inhalation IH SCH (10:58)
[2017-06-28] MEDS: Budesonide/Formoterol 160/4.5 MDI IH SCH (10:59)
== END 2017-06-28 11:00 | disposition home or self-care (01) ==
LOC: EMEROOPIK 12:19 → INPPIK 12:19
PROVIDERS: ADMIT Internal Medicine; ATTEND Internal Medicine

== ENCOUNTER 2021-03-13 07:34 | Observation (INO) ==
[2021-03-13] MEDS ORDERED: Furosemide 40 MG/4 ML VIAL IVP ONE (07:39)
[2021-03-13] MEDS ORDERED: Ipratropium/Albuterol Neb 3 ML IH ONE (07:39)
[2021-03-13] MEDS ORDERED: Ondansetron 4 MG/2 ML VIAL IVP ONE (07:48)
[2021-03-13 08:09] LABS: Blood Gas Pressure Support 16 cm H2O; VBG HCO3 21 mEq/L (21-27); VBG PCO2 44 mmHg (41-51); VBG PO2 175 mmHg (25-50)
[2021-03-13 08:10] LABS: Basophils # 0.1 K/mcL (0.0-0.2); Basophils % 0.4 %; Eosinophils # 0.2 K/mcL (0.0-0.6); Eosinophils % 1.3 %; Hematocrit 37.6 % (35.3-44.9); Hemoglobin 12.1 g/dL (11.5-15.4); Immature Granulocytes % 0.7 % (0-4); Lymphocytes % 18.2 %; Mean Corpuscular HGB Conc 32.2 g/dL (31.6-35.5); Mean Corpuscular Hemoglobin 32.8 pg (28.0-33.3); Mean Corpuscular Volume 101.9 fL (83.0-100.0); Mean Platelet Volume 9.8 fL (9.4-12.4); Monocytes # 0.4 K/mcL (0.0-1.3); Monocytes % 2.3 %; Platelet Count 309 K/mcL (140-400); Red Blood Count 3.69 M/mcL (3.82-4.97); Red Cell Distribution Width 13.1 % (11.5-14.5); Segmented Neutrophils % 77.1 %; White Blood Count 16.7 K/mcL (4.3-11.1)
[2021-03-13 08:12] LABS: Neutrophils # 12.9 K/mcL (1.6-8.9)
[2021-03-13 08:17] LABS: Prothrombin Time 11.4 Seconds (9.4-12.1)
[2021-03-13 08:20] LABS: Activated Partial Thrombo Time 23.4 Seconds (26.0-36.0)
[2021-03-13 08:25] LABS: BUN/Creatinine Ratio 19 (6-26); Blood Urea Nitrogen 28 mg/dL (8-23); Calcium 8.4 mg/dL (8.6-10.3); Carbon Dioxide 21 mEq/L (23-29); Chloride 105 mEq/L (98-107); Glucose 305 mg/dL (70-105); Osmolality,Calculated 307 (280-300); Potassium 4.4 mEq/L (3.5-5.1); Sodium 140 mEq/L (136-145); eGFR For African Americans 41 (> 60); eGFR For Non-African Americans 34 (> 60)
[2021-03-13 08:29] LABS: Troponin I < 0.03 ng/mL (< 0.04)
[2021-03-13] MEDS ORDERED: Naloxone 0.4 MG/ML INJ IVP PRN (09:32)
[2021-03-13] MEDS ORDERED: MOM Conc 10 ML UD.LIQ PO PRN (09:32)
[2021-03-13] MEDS ORDERED: Melatonin 3 MG TABLET PO PRN (09:32)
[2021-03-13] MEDS ORDERED: Mag Hydrox/Al Hydrox/Simeth 30 ML UDC PO PRN (09:32)
[2021-03-13] MEDS ORDERED: Loratadine 10 MG TABLET PO PRN (09:40)
[2021-03-13] MEDS ORDERED: methylPREDNISolone 125 MG/2 ML VIAL IVP ONE (09:41)
[2021-03-13] MEDS ORDERED: Dextrose Gel 15 GM/37.5 ML TUBE PO PRN ×2 (09:42)
[2021-03-13] MEDS ORDERED: D5% in Water 1,000 ML IVC PRN (09:42)
[2021-03-13] MEDS ORDERED: *HR* Dextrose 50 % in Water (Vial) 50 ML VIAL IVP PRN (09:42)
[2021-03-13] MEDS ORDERED: levoFLOXacin 500 MG/100 ML 500 MG/100 ML BAG IVPB ONE ×2 (10:00→17:00)
[2021-03-13] MEDS: Ipratropium/Albuterol Neb 3 ML IH SCH ×3 (11:01→20:20)
[2021-03-13] MEDS: Insulin LISPRO 300 UNITS/3 ML VIAL SUBQ SCH ×3 (12:09→20:26)
[2021-03-13] MEDS: 0.9 % Sodium Chloride 1,000 ML IVC SCH (12:56)
[2021-03-13] MEDS: Lactobacillus 1 EACH CAP.SPRINK PO SCH (12:56)
[2021-03-13] MEDS: MethylPREDNISolone 40 MG/ML VIAL IVP SCH (16:57)
[2021-03-13 17:13] LABS: Estimated Average Glucose 143 mg/dl; Hemoglobin A1C 6.6 %
[2021-03-13 17:17] LABS: Bilirubin,Urine Negative (Negative); Blood,Urine Negative (Negative); Clarity,Urine Clear (Clear); Glucose,Urine (UA) Normal (Normal); Ketones,Urine Negative (Negative); Leukocyte Esterase,Urine Negative (Negative); Nitrite,Urine Negative (Negative); Protein,Urine Negative (Neg-Trace); Urobilinogen,Urine Normal (Normal)
[2021-03-13 17:18] LABS: Color,Urine Light Yellow (Yellow)
[2021-03-13 20:23] LABS: Adenovirus Not Detected (Not Detect); Bordetella Pertussis Not Detected (Not Detect); Chlamydophila pneumoniae Not Detected (Not Detect); Coronavirus 229E Not Detected (Not Detect); Coronavirus HKU1 Not Detected (Not Detect); Coronavirus NL63 Not Detected (Not Detect); Coronavirus OC43 Not Detected (Not Detect); Human Metapneumovirus Not Detected (Not Detect); Human Rhinovirus/Enterovirus Not Detected (Not Detect); Influenza A Subtype 2009 H1 Not Detected (Not Detect); Influenza B Not Detected (Not Detect); Mycoplasma pneumoniae Not Detected (Not Detect); Parainfluenza Virus 1 Not Detected (Not Detect); Parainfluenza Virus 2 Not Detected (Not Detect); Parainfluenza Virus 3 Not Detected (Not Detect); Parainfluenza Virus 4 Not Detected (Not Detect); Respiratory Syncytial Virus Not Detected (Not Detect); SARS-CoV-2 Not Detected (Not Detect)
[2021-03-13] MEDS: Fluticasone Propionate Nasal 50 MCG/SPRAY BOTTLE NS SCH (20:46)
[2021-03-14] MEDS: MethylPREDNISolone 40 MG/ML VIAL IVP SCH ×4 (00:01→23:58)
[2021-03-14] MEDS: Ipratropium/Albuterol Neb 3 ML IH SCH ×3 (00:29→07:54)
[2021-03-14] MEDS: 0.9 % Sodium Chloride 1,000 ML IVC SCH (02:58)
[2021-03-14] MEDS: *HR* Enoxaparin 30 MG/0.3 ML SYRINGE SQ SCH (05:52)
[2021-03-14 07:57] LABS: Potassium 4.3 mEq/L (3.5-5.1)
[2021-03-14 09:06] LABS: Basophils % 0.1 %; Hematocrit 34.2 % (35.3-44.9); Hemoglobin 11.2 g/dL (11.5-15.4); Immature Granulocytes % 0.4 % (0-4); Lymphocytes % 9.6 %; Mean Corpuscular HGB Conc 32.7 g/dL (31.6-35.5); Mean Corpuscular Hemoglobin 32.8 pg (28.0-33.3); Mean Corpuscular Volume 100.3 fL (83.0-100.0); Mean Platelet Volume 10.2 fL (9.4-12.4); Monocytes # 0.1 K/mcL (0.0-1.3); Monocytes % 0.7 %; Neutrophils # 9.6 K/mcL (1.6-8.9); Platelet Count 252 K/mcL (140-400); Red Blood Count 3.41 M/mcL (3.82-4.97); Segmented Neutrophils % 89.2 %; White Blood Count 10.8 K/mcL (4.3-11.1)
[2021-03-14] MEDS ORDERED: Ipratropium/Albuterol Neb 3 ML IH PRN (09:43)
[2021-03-14] MEDS: *HR* Glimepiride 2 MG TABLET PO SCH (10:45)
[2021-03-14] MEDS: Lactobacillus 1 EACH CAP.SPRINK PO SCH (10:45)
[2021-03-14] MEDS: Fluticasone Propionate Nasal 50 MCG/SPRAY BOTTLE NS SCH ×2 (10:45→21:14)
[2021-03-14] MEDS: Insulin LISPRO 300 UNITS/3 ML VIAL SUBQ SCH ×4 (10:48→21:15)
[2021-03-14] MEDS: Ondansetron 4 MG/2 ML VIAL IVP PRN (19:55)
[2021-03-15] MEDS: *HR* Enoxaparin 30 MG/0.3 ML SYRINGE SQ SCH (05:47)
[2021-03-15 07:23] VITALS: BP 155/75
[2021-03-15] MEDS: Ondansetron 4 MG/2 ML VIAL IVP PRN (07:56)
[2021-03-15] MEDS: Fluticasone Propionate Nasal 50 MCG/SPRAY BOTTLE NS SCH (07:56)
[2021-03-15] MEDS: *HR* Glimepiride 2 MG TABLET PO SCH (07:57)
[2021-03-15] MEDS: Lactobacillus 1 EACH CAP.SPRINK PO SCH (07:57)
[2021-03-15] MEDS: Insulin LISPRO 300 UNITS/3 ML VIAL SUBQ SCH ×2 (07:58→13:16)
[2021-03-15] MEDS: MethylPREDNISolone 40 MG/ML VIAL IVP SCH (07:59)
[2021-03-15] MEDS ORDERED: lisinopriL 5 MG TABLET PO SCH (09:00)
[2021-03-15] MEDS ORDERED: Pyridoxine (B-6) 50 MG TABLET PO SCH (09:00)
[2021-03-15] MEDS ORDERED: GINGKO BILOBA PO SCH (09:00)
[2021-03-15] MEDS ORDERED: GINGER 500 MG PO SCH (09:00)
[2021-03-15 09:40] LABS: Basophils % 0.1 %; Hematocrit 36.5 % (35.3-44.9); Hemoglobin 11.9 g/dL (11.5-15.4); Immature Granulocytes % 0.8 % (0-4); Lymphocytes # 1.2 K/mcL (0.6-4.6); Lymphocytes % 7.3 %; Mean Corpuscular HGB Conc 32.6 g/dL (31.6-35.5); Mean Corpuscular Hemoglobin 32.6 pg (28.0-33.3); Monocytes # 0.3 K/mcL (0.0-1.3); Monocytes % 1.6 %; Platelet Count 272 K/mcL (140-400); Red Blood Count 3.65 M/mcL (3.82-4.97); Segmented Neutrophils % 90.2 %; White Blood Count 16.8 K/mcL (4.3-11.1)
[2021-03-15 09:57] LABS: Calcium 8.7 mg/dL (8.6-10.3); Potassium 4.4 mEq/L (3.5-5.1)
[2021-03-15] MEDS ORDERED: Furosemide 20 MG TABLET PO SCH (10:15)
[2021-03-15 10:44] LABS: Neutrophils # 15.2 K/mcL (1.6-8.9)
[2021-03-15 10:46] LABS: Platelet Estimate Normal (Normal)
== END 2021-03-15 15:17 | disposition home health service (06) ==
LOC: EMEROOPIK 07:34 → INPPIK 07:34
PROVIDERS: ADMIT Family Medicine; ATTEND Family Medicine